=== PATIENT | female | born 1995 | race Caucasian/White ===

== ENCOUNTER 2020-02-20 16:55 | Inpatient (IN) ==
[2020-02-20 17:36] LABS: Bacteria,Urine Occasional /HPF (Few); Bilirubin,Urine Negative (Negative); Blood, Urine Negative (Negative); Glucose,Urine (UA) Negative (Negative); Ketones,Urine 80 mg/dL (Negative); Mucus,Urine Occasional /LPF (Occasional); Nitrite,Urine Negative (Negative); Protein,Urine Negative; RBC,Urine 6 /HPF (0-4); Squamous Epithelial Cell,Urine Few /HPF (0-10); Urine Appearance Slightly Hazy (Clear); Urine Color Yellow (Yellow); Urine Specific Gravity 1.014 (1.001-1.035); WBC,Urine 13 /HPF (0-6)
[2020-02-20 17:45] LABS: Basophils % 0.3 % (0.0-0.8); Eosinophils % 0.2 % (0.00-10.9); Hematocrit 39.1 VOL% (35.7-47.0); Immature Granulocytes % 0.5 %; Immature Granulocytes Absolute 0.06 #; Lymphocytes # 1.6 10*3/uL (1.4-4.0); Lymphocytes % 13.3 % (21.3-54.2); Mean Corpuscular HGB Conc 33.2 GM/DL (32-36); Mean Corpuscular Volume 83.7 FL (87-102); Mean Platelet Volume 11.6 FL (9.6-12.0); Monocytes % 6.3 % (1.7-12.7); Neutrophils % 79.4 % (38.7-73.9); Platelet Count 226 T/CUMM (130-400); Red Blood Count 4.67 MC/CUMM (3.8-5.5); Red Cell Distribution Width 15.5 % (9.3-17.3); White Blood Count 12.2 T/CUMM (4-12)
[2020-02-20 17:58] LABS: Albumin 2.8 G/DL (3.4-5.0); Bilirubin,Direct 0.26 MG/DL (0.0-0.20); Bilirubin,Total 1.1 MG/DL (0.2-1.0); Calcium 9.2 MG/DL (8.5-10.1); Osmolality,Calculated 270.8 MOS/KG (273-304); Total Protein 7.8 G/DL (6.4-8.3); Uric Acid 8.5 MG/DL (2.6-6.0)
[2020-02-20 18:14] LABS: INR 0.9; PT Patient Result 9.9 SECS (9.8-11.9); Partial Thromboplastin Time 31.9 SECS (23.9-33.8)
[2020-02-20 19:32] LABS: Protein/Creatinine Ratio,Urine 0.4 RATIO
[2020-02-20] MEDS ORDERED: ONDANSETRON 4 MG/2 ML VIAL IV PRN (19:54)
[2020-02-20] MEDS: LACTATED RINGERS 1,000 ML IV SCH (20:30)
[2020-02-20] MEDS: BUTORPHANOL 2 MG/ML VIAL IV PRN (23:47)
[2020-02-21] MEDS: LACTATED RINGERS 1,000 ML IV SCH ×3 (00:52→13:38)
[2020-02-21] MEDS: BUTORPHANOL 2 MG/ML VIAL IV PRN ×2 (02:57→06:18)
[2020-02-21 06:04] VITALS: BP 141/75
[2020-02-21] MEDS ORDERED: ePHEDrine 50 MG/ML VIAL IV PRN (06:11)
[2020-02-21] MEDS ORDERED: LACTATED RINGERS 1,000 ML IV ONE (06:11)
[2020-02-21] MEDS ORDERED: FAMOTIDINE 20 MG/2 ML VIAL IV ONE (06:11)
[2020-02-21] MEDS ORDERED: CITRIC ACID/SODIUM CITRATE 30 ML UDCUP PO ONE (06:11)
[2020-02-21] MEDS: fentaNYL 2 MCG/ROPIV 0.2% EPID 100 ML EPIDURAL SCH ×2 (08:27→14:37)
[2020-02-21] MEDS: OXYTOCIN/LR 20 UNIT/1,000 ML BAG IV SCH (09:03)
[2020-02-21 10:01] LABS: Bilirubin,Urine Negative (Negative); Blood, Urine Small mg/dL (Negative); Glucose,Urine (UA) Negative (Negative); Hyaline Casts,Urine 1 /LPF (0-3); Ketones,Urine 80 mg/dL (Negative); Mucus,Urine Occasional /LPF (Occasional); Nitrite,Urine Negative (Negative); Protein,Urine Negative; RBC,Urine <1 /HPF (0-4); Squamous Epithelial Cell,Urine Occasional /HPF (0-10); Urine Appearance CLEAR (Clear); Urine Color Yellow (Yellow); Urine Specific Gravity 1.011 (1.001-1.035); WBC,Urine 2 /HPF (0-6)
[2020-02-21] MEDS ORDERED: TRANEXAMIC ACID 1,000 MG/10 ML VIAL ONE (18:03)
[2020-02-21] MEDS ORDERED: OXYTOCIN/LR 20 UNIT/1,000 ML BAG IV ONE ×2 (18:03→21:19)
[2020-02-21] MEDS ORDERED: CARBOPROST TROMETHAMINE 250 MCG/ML AMP IM ONE ×2 (18:03→20:32)
[2020-02-21] MEDS ORDERED: miSOPROStoL 200 MCG TABLET ONE (18:03)
[2020-02-21] MEDS ORDERED: METHYLERGONOVINE 0.2 MG/1 ML AMP ONE (18:03)
[2020-02-21] MEDS ORDERED: LIDOCAINE 1% 50 ML VIAL ONE (20:22)
[2020-02-21] MEDS ORDERED: miSOPROStoL 200 MCG TABLET VAG ONE (20:30)
[2020-02-21 20:49] LABS: Cord Venous Blood PCO2 29.6 MMHG; Cord Venous Blood PO2 30.4 MMHG
[2020-02-21 21:19] LABS: Hematocrit 33.8 VOL% (35.7-47.0)
[2020-02-21] MEDS ORDERED: RHO(D) IMMUNE GLOBULIN 300 MCG SYRINGE IM ONE (21:19)
[2020-02-21] MEDS ORDERED: LANOLIN 50% CREAM 0.3 OZ TUBE TOP PRN (21:19)
[2020-02-21] MEDS ORDERED: ONDANSETRON 4 MG/2 ML VIAL IV PRN (21:19)
[2020-02-21] MEDS ORDERED: BISACODYL 10 MG SUPP RECTAL PRN (21:19)
[2020-02-21] MEDS ORDERED: ACETAMINOPHEN 325 MG TABLET PO PRN (21:19)
[2020-02-21] MEDS ORDERED: HYDROCORTISONE 2.5% RECTAL CREAM 30 GM TUBE TOP PRN (21:19)
[2020-02-21] MEDS ORDERED: DIPH/TET/ACEL PERT BOOSTER VACCINE 0.5 ML VIAL IM ONE (21:19)
[2020-02-21] MEDS ORDERED: MEASLES/MUMPS/RUBELLA VACCINE 0.5 ML VIAL SUBCUT ONE (21:19)
[2020-02-21] MEDS ORDERED: BENZOCAINE 20%/MENTHOL 0.5% SPRAY 56 GM CAN TOP PRN (21:19)
[2020-02-21] MEDS ORDERED: oxyCODONE/ACETAMINOPHEN 5-325 MG TABLET PO PRN ×2 (21:19)
[2020-02-21] MEDS ORDERED: WITCH HAZEL PADS 100/JAR TOP PRN (21:19)
[2020-02-21] MEDS ORDERED: METHYLERGONOVINE 0.2 MG/1 ML AMP IM ONE (22:00)
[2020-02-22] MEDS: fentaNYL 2 MCG/ROPIV 0.2% EPID 100 ML EPIDURAL SCH (01:19)
[2020-02-22] MEDS: METHYLERGONOVINE 0.2 MG TABLET PO SCH ×2 (02:28→15:08)
[2020-02-22 02:55] LABS: Hematocrit 26.4 VOL% (35.7-47.0); Hemoglobin 8.9 GM/DL (12.0-16.0)
[2020-02-22] MEDS ORDERED: FERROUS SULFATE 325 MG TABLET PO SCH ×2 (09:00→21:00)
[2020-02-22] MEDS: IBUPROFEN 800 MG TABLET PO PRN ×2 (11:43→20:46)
[2020-02-22] MEDS: OXYTOCIN/LR 20 UNIT/1,000 ML BAG IV SCH (15:09)
[2020-02-22] MEDS: DOCUSATE SODIUM 100 MG CAPSULE PO SCH ×2 (15:09→20:46)
[2020-02-23] MEDS: DOCUSATE SODIUM 100 MG CAPSULE PO SCH (08:03)
[2020-02-23] MEDS: IBUPROFEN 800 MG TABLET PO PRN (08:03)
[2020-02-23] MEDS ORDERED: MEASLES/MUMPS/RUBELLA VACCINE 0.5 ML VIAL SUBCUT ONE (12:30)
[2020-02-23] MEDS ORDERED: RHO(D) IMMUNE GLOBULIN 300 MCG SYRINGE IM ONE (12:30)
== END 2020-02-23 13:58 | disposition home or self-care (01) | DRG 768 ==
LOC: N.LDOUT 16:55 → N.LD 16:57
PROVIDERS: ADMIT Obstetrics & Gynecology; ATTEND Obstetrics & Gynecology